=== PATIENT | female | born 1955 | race Caucasian/White ===

== ENCOUNTER 2021-10-04 08:27 | Day surgery (SDC) | payer OTHER, BC ==
[2021-09-26 16:55] VITALS: BMI 29.2
[2021-10-04 08:59] VITALS: TEMP 97.7
[2021-10-04] MEDS ORDERED: MIDAZOLAM HCL 2 MG/2 ML SINGLE DOSE VIAL ONE (09:43)
[2021-10-04] MEDS ORDERED: ONDANSETRON 4 MG/2 ML VIAL ONE (10:13)
[2021-10-04] MEDS ORDERED: PROPOFOL 20 ML ONE (10:13)
[2021-10-04] MEDS ORDERED: DEXAMETHASONE SOD PHOSPHATE 4 MG/1 ML VIAL ONE (10:13)
[2021-10-04] MEDS ORDERED: LIDOCAINE HCL/PF 2% SDV 5ML VIAL ONE (10:13)
[2021-10-04 10:39] VITALS: PULSE 68
[2021-10-04 11:02] VITALS: BP 138/78
== END 2021-10-04 11:09 | disposition home or self-care (01) ==
LOC: FASU 08:27
PROVIDERS: ATTEND Orthopaedic Surgery Hand Surgery
PROC: 01N50ZZ Release Median Nerve, Open Approach (ICD-10-PCS; principal; 2021-10-04 09:58)
DX: G56.01 Carpal tunnel syndrome, right upper limb (principal)